=== PATIENT | female | born 1935 | race Caucasian/White ===

== ENCOUNTER 2016-08-16 21:41 | Inpatient (IN) | payer OTHER, BC ==
[~2016-08-16] VITALS: Ht 165.1 cm; Wt 63.3 kg
[~2016-08-16 21:41] MED LIST: ANTIVERT 12.512.5 MG PO; AZOR 5 MG-20 MG1 TAB PO; CALCIUM1 CAP PO; EYE OP; FISH OIL 1000MG1 CAP PO; FOLIC ACID 40400 MCG PO; FOLIC ACID0.4 MG; HCTZ 25MG TAB25 MG PO; IRON325 M1; LOTREL 5/20 CAP1 CAP PO; MACUHEALTH PO; OCUVITE1 TA1 PO; SYNTHROID0.125 MG PO; SYNTHROID0.125 MG/T; SYNTHROID0.125 MG/T PO; TEKTURNA150 MG PO; TEKTURNA300 MG PO; THERATEARS 0.60.6 ML OP; THERATEARS PO; TOPROL XL 50MG50 MG PO; TOPROL XL50 MG PO; TYLENOL 325MG325 MG PO; TYLENOL 500MG500 MG PO; VITAMIN C500 MG; VITAMIN D 400400 IU PO; VITAMIN D1000 IU PO; VITAMIN D31000 IU PO; ZOFRAN 4MG T4 MG/TAB PO
[2016-08-16 22:19] LABS: BASO # 0.1 (0.0-0.2); BASO % 0.7 % (0.0-2.0); EOS # 0.1 (0.0-0.7); GRAN # 5.5 (1.4-6.5); GRAN % 72.1 % (42.2-75.2); HEMOGLOBIN 12.6 g/dl (12.5-16.0); LYMPH # 1.1 (1.2-3.4); LYMPH % 13.9 % (20.0-51.0); MEAN CELL VOLUME 90 fl (80.0-100.0); MEAN CORPUSCULAR HEMOGLOBIN 31 pg (27.0-31.0); MEAN CORPUSCULAR HGB CONC 35 g/dl (33.0-37.0); MEAN PLATELET VOLUME 9.3 fl (7.4-10.4); MONO # 0.9 (0.1-0.6); PLATELET COUNT 232 K/mm3 (130-400); RED BLOOD COUNT 4.06 M/mm3 (4.10-5.30); REDCELL DISTRIBUTION WIDTH-CV 12.8 % (11.5-14.5); WHITE BLOOD COUNT 7.7 K/mm3 (4.8-10.8)
[2016-08-16 22:20] LABS: HEMATOCRIT 36.4 % (37.0-47.0)
[2016-08-16 22:30] LABS: ADJUSTED CALCIUM 9.7 mg/dL (8.4-10.2); ALBUMIN 4.1 gm/dL (3.5-5.0); BILIRUBIN,TOTAL 1.1 mg/dL (0.0-1.0); CALCIUM 9.8 mg/dL (8.4-10.2); CREATININE, serum 1.01 mg/dL (0.52-1.25); POTASSIUM 3.5 mmol/L (3.4-5.0); TOTAL PROTEIN 7.4 gm/dL (6.4-8.2)
[2016-08-16 22:47] LABS: PH 6 (5-8); SQUAMOUS EPITHELIAL 0-2 /hpf; URINE APPEARANCE Hazy; URINE BACTERIA Rare /hpf; URINE BILIRUBIN Negative (NEGATIVE); URINE BLOOD Negative (NEGATIVE); URINE COLOR Yellow; URINE GLUCOSE Negative (NEGATIVE); URINE KETONE Negative (NEGATIVE); URINE UROBILINOGEN Negative (NEGATIVE); URINE WBC 0-2 /hpf
[2016-08-17] VITALS (7 sets, daily range): BP systolic 134–162; BP diastolic 67–87; PULSE 72–91; TEMP 97.9–100.2
[2016-08-18 05:14] VITALS: BP 146/72; PULSE 88; TEMP 98.7
[2016-08-18 07:47] LABS: BASO % 0.4 % (0.0-2.0); EOS % 0.3 % (0-4.0); GRAN # 5.7 (1.4-6.5); GRAN % 79.7 % (42.2-75.2); LYMPH # 0.7 (1.2-3.4); LYMPH % 9.1 % (20.0-51.0); MEAN CELL VOLUME 91 fl (80.0-100.0); MEAN CORPUSCULAR HGB CONC 34 g/dl (33.0-37.0); MEAN PLATELET VOLUME 9.5 fl (7.4-10.4); MONO # 0.7 (0.1-0.6); MONO % 10.2 % (1.7-9.3); PLATELET COUNT 199 K/mm3 (130-400); RED BLOOD COUNT 3.49 M/mm3 (4.10-5.30); REDCELL DISTRIBUTION WIDTH-CV 12.8 % (11.5-14.5); WHITE BLOOD COUNT 7.2 K/mm3 (4.8-10.8)
[2016-08-18 08:04] LABS: HEMATOCRIT 31.7 % (37.0-47.0); HEMOGLOBIN 10.9 g/dl (12.5-16.0); MEAN CORPUSCULAR HEMOGLOBIN 31 pg (27.0-31.0)
[2016-08-18 08:31] LABS: CALCIUM 8.5 mg/dL (8.4-10.2); CREATININE, serum 0.97 mg/dL (0.52-1.25); POTASSIUM 3.4 mmol/L (3.4-5.0)
[2016-08-18 09:14] VITALS: BP 137/71; PULSE 79; TEMP 98.4
[2016-08-18 13:19] VITALS: BP 125/71; PULSE 88; TEMP 99.4
[2016-08-18 17:42] VITALS: BP 125/68; PULSE 90; TEMP 100.2
[2016-08-18 21:40] VITALS: BP 132/86; PULSE 98; TEMP 100.3
[2016-08-19 01:52] VITALS: BP 124/61; PULSE 76; TEMP 100.6
[2016-08-19 03:31] VITALS: TEMP 98.4
[2016-08-19 05:09] VITALS: BP 114/65; PULSE 76; TEMP 98.2
[2016-08-19 07:37] LABS: BASO % 0.5 % (0.0-2.0); EOS % 0.6 % (0-4.0); GRAN # 4.7 (1.4-6.5); GRAN % 75.8 % (42.2-75.2); LYMPH % 10.9 % (20.0-51.0); MEAN CELL VOLUME 92 fl (80.0-100.0); MEAN CORPUSCULAR HGB CONC 34 g/dl (33.0-37.0); MEAN PLATELET VOLUME 9.6 fl (7.4-10.4); MONO # 0.7 (0.1-0.6); MONO % 11.9 % (1.7-9.3); PLATELET COUNT 182 K/mm3 (130-400); RED BLOOD COUNT 2.94 M/mm3 (4.10-5.30); REDCELL DISTRIBUTION WIDTH-CV 12.8 % (11.5-14.5); WHITE BLOOD COUNT 6.2 K/mm3 (4.8-10.8)
[2016-08-19 07:59] LABS: HEMATOCRIT 27.1 % (37.0-47.0); HEMOGLOBIN 9.2 g/dl (12.5-16.0); LYMPH # 0.7 (1.2-3.4); MEAN CORPUSCULAR HEMOGLOBIN 31 pg (27.0-31.0)
[2016-08-19 09:57] VITALS: BP 104/49; PULSE 81; TEMP 99.7
== END 2016-08-19 12:31 | disposition home or self-care (01) | DRG 389 ==
LOC: COL.ER 21:41 → SURG 23:39
PROVIDERS: Emergency Medicine; Surgery
PROC: 0D9670Z Drainage of Stomach with Drainage Device, Via Natural or Artificial Opening (ICD-10-PCS; principal; 2016-08-16)
DX: K56.5 Intestinal adhesions [bands] with obstruction (postinfection) (principal); E87.1 Hypo-osmolality and hyponatremia; I10 Essential (primary) hypertension
CPT/HCPCS: J2270; J2405; J7030; J7120; Q9967

== ENCOUNTER 2018-03-28 21:44 | Observation (INO) | payer BC ==
[~2018-03-28] VITALS: Ht 165.1 cm; Wt 55.7 kg
[2018-03-28 22:27] VITALS: BP 123/78; PULSE 72; TEMP 98.7
[2018-03-29] MEDS ORDERED: SYNTHROID 0.10.15 MG PO (03:43)
[2018-03-29] MEDS ORDERED: TOPROL XL200 MG PO (03:44)
[2018-03-29] MEDS ORDERED: LOTREL 10 MG-401 CAP PO (03:45)
[2018-03-29] MEDS ORDERED: PEPCID 20MG TAB20 MG PO (03:48)
[2018-03-29] MEDS ORDERED: OCUVITE1 TA1 PO (03:49)
[2018-03-29] MEDS ORDERED: CENTRUM SILVER1 CTB PO (03:49)
[2018-03-29] MEDS ORDERED: VITAMIN D31000 I1 PO (03:51)
[2018-03-29 04:00] VITALS: BP 122/62; PULSE 64; TEMP 98.4
[2018-03-29 06:35] LABS: BASO % 0.7 % (0.0-2.0); EOS # 0.1 (0.0-0.7); EOS % 2.2 % (0-4.0); GRAN # 3.9 (1.4-6.5); GRAN % 71.5 % (42.2-75.2); HEMOGLOBIN 10.5 g/dl (12.5-16.0); LYMPH # 0.8 (1.2-3.4); LYMPH % 14.1 % (20.0-51.0); MEAN CELL VOLUME 95 fl (80.0-100.0); MEAN CORPUSCULAR HEMOGLOBIN 32 pg (27.0-31.0); MEAN CORPUSCULAR HGB CONC 33 g/dl (33.0-37.0); MEAN PLATELET VOLUME 9.9 fl (7.4-10.4); MONO # 0.6 (0.1-0.6); MONO % 11.1 % (1.7-9.3); PLATELET COUNT 171 K/mm3 (130-400); RED BLOOD COUNT 3.31 M/mm3 (4.10-5.30); REDCELL DISTRIBUTION WIDTH-CV 13.7 % (11.5-14.5)
[2018-03-29 06:42] LABS: HEMATOCRIT 31.5 % (37.0-47.0)
[2018-03-29 06:45] LABS: CALCIUM 8.5 mg/dL (8.4-10.2); CREATININE, serum 1.08 mg/dL (0.52-1.25); POTASSIUM 3.6 mmol/L (3.4-5.0)
[2018-03-29 07:15] VITALS: BP 129/68; PULSE 64; TEMP 98.3
[2018-03-29 11:28] VITALS: BP 144/79; PULSE 66; TEMP 97.7
[2018-03-29 15:13] VITALS: BP 149/75; PULSE 72; TEMP 98.1
[2018-03-29 20:07] VITALS: BP 148/81; PULSE 71; TEMP 98.2
[2018-03-30 00:08] VITALS: BP 134/68; PULSE 41; TEMP 98.9
[2018-03-30 03:30] VITALS: BP 126/65; PULSE 69; TEMP 98.3
[2018-03-30 07:17] VITALS: BP 120/74; PULSE 71; TEMP 99.2
== END 2018-03-30 10:56 | disposition home or self-care (01) ==
LOC: SURG 21:44
PROVIDERS: Surgery
DX: K56.609 Unspecified intestinal obstruction, unspecified as to partial versus complete obstruction (principal); Z90.49 Acquired absence of other specified parts of digestive tract; Z96.641 Presence of right artificial hip joint; Z90.710 Acquired absence of both cervix and uterus; Z90.6 Acquired absence of other parts of urinary tract; Z90.5 Acquired absence of kidney; Z88.5 Allergy status to narcotic agent; Z88.6 Allergy status to analgesic agent; Z88.8 Allergy status to other drugs, medicaments and biological substances
CPT/HCPCS: G0008; G0378; G0379; J7120

== ENCOUNTER → 2018-09-26 | Outpatient (REF) ==
[~2018-09-26] MED LIST changes: +CENTRUM SILVER1 CTB PO; +LOTREL 10 MG-401 CAP PO; +PEPCID 20MG TAB20 MG PO; +SYNTHROID 0.10.15 MG PO; +TOPROL XL200 MG PO; +VITAMIN D31000 I1 PO
== END ==
LOC: ZLAB.WCH 18:14
DX: Z01.89 Encounter for other specified special examinations (principal)

== ENCOUNTER 2019-01-30 13:09 | Inpatient (IN) | payer BC ==
[~2019-01-30] VITALS: Ht 165.1 cm; Wt 52.6 kg
[2019-02-12] VITALS (13 sets, daily range): BP systolic 125–138; BP diastolic 60–78; PULSE 61–73; TEMP 97–97.7
[2019-02-12 11:16] LABS: BASO # 0.1 (0.0-0.2); BASO % 0.7 % (0.0-2.0); EOS # 0.1 (0.0-0.7); EOS % 0.9 % (0-4.0); GRAN # 4.7 (1.4-6.5); GRAN % 69.5 % (42.2-75.2); HEMATOCRIT 33.5 % (37.0-47.0); HEMOGLOBIN 10.8 g/dl (12.5-16.0); LYMPH # 1.2 (1.2-3.4); LYMPH % 18.5 % (20.0-51.0); MEAN CELL VOLUME 91 fl (80.0-100.0); MEAN CORPUSCULAR HEMOGLOBIN 29 pg (27.0-31.0); MEAN CORPUSCULAR HGB CONC 32 g/dl (33.0-37.0); MEAN PLATELET VOLUME 9.3 fl (7.4-10.4); MONO # 0.7 (0.1-0.6); MONO % 10.1 % (1.7-9.3); PLATELET COUNT 213 K/mm3 (130-400); RED BLOOD COUNT 3.69 M/mm3 (4.10-5.30); REDCELL DISTRIBUTION WIDTH-CV 14.7 % (11.5-14.5)
[2019-02-12 11:29] LABS: ALBUMIN 3.9 gm/dL (3.5-5.0); BILIRUBIN,TOTAL 0.7 mg/dL (0.0-1.0); CALCIUM 8.5 mg/dL (8.4-10.2); CREATININE, serum 1.2 (0.52-1.25); POTASSIUM 3.6 mmol/L (3.4-5.0); TOTAL PROTEIN 6.9 gm/dL (6.4-8.2)
[2019-02-12] MEDS ORDERED: MASON NATURAL1000 MG PO (12:39)
[2019-02-12] MEDS ORDERED: ANTIVERT 25MG25 MG PO (12:40)
[2019-02-12] MEDS ORDERED: TYLENOL 500MG500 MG PO (12:42)
[2019-02-12] MEDS ORDERED: LASIX 40MG TABL40 MG PO (14:58)
--- NOTE | 2019-02-12 17:00 | NUR ---
returned to room per bed from PACU, awake and alert, IV infusing and placed on pump at 125ml/hr, O2 on at 2L/NC, rios cath patent draining clear yellow urine, epidural in place and infusing at 5ml/hr, rolled to side and no wrinkles in linens or wires under patient and epidural intact, SCDs on bilaterally, has approx 6cm area to distal midline incision with bloody drainage, G tube in place, instructed on use of epidural and verbalizes understanding, denies needs, family at bedside
--- NOTE | 2019-02-12 17:15 | NUR ---
appears to be dozing when entered room, G tube to dependent drainage this time with scant amount reddish brown drainage in G tube, full assessment completed, see interventions for further info, drainage to abdominal dressing remains the same
--- NOTE | 2019-02-12 17:30 | NUR ---
now has reddish brown drainage in tubing of drainage bag from G tube
--- NOTE | 2019-02-12 17:45 | NUR ---
sleeping between checks but arouses easily
--- NOTE | 2019-02-12 18:45 | NUR ---
continues to sleep, awakened and bedside shift report given to FRANCISCA Munoz
--- NOTE | 2019-02-12 20:00 | NUR ---
Report received, assumed care for third shift lieutenant. Assessment complete. VS remain stable. Denies pain-very drowsy falling asleep in between questions. IV to Left hand with [id number]-infusing without difficulty. G tube to gravity-brown fluid return. Gauze dressing to abdomen with small amount of drainage marked by day shift-has not increased. Ko cath with yellow urine. Epidural @5-denies pain stating epidural is working well. Denies questions or concerns. Call light in reach, bed in low/wheels locked. Will monitor.
--- NOTE | 2019-02-13 | NUR ---
Continues to rest this shift-denies pain, nausea or shortness of breath. Has been up off and on stating "she is so happy with her news." Call light in reach. Will monitor.
[2019-02-13 04:00] VITALS: BP 102/53; PULSE 69; TEMP 97.5
--- NOTE | 2019-02-13 04:55 | NUR ---
Rested off and on this shift-epidural in place and controlling pain. Denies nausea or shortness of breath. Has tolerated some clear liquids-remained very drowsy this shift. Denies needs at this time. Will monitor.
--- NOTE | 2019-02-13 06:53 | NUR ---
appears to be sleeping, bedside shift report received from FRANCISCA Munoz
--- NOTE | 2019-02-13 06:54 | NUR ---
Report to FRANCISCA Middleton
[2019-02-13 07:01] LABS: CREATININE, serum 1.01 (0.52-1.25)
[2019-02-13 07:08] LABS: POTASSIUM 3.9 mmol/L (3.4-5.0)
[2019-02-13 07:13] LABS: MEAN CELL VOLUME 90 fl (80.0-100.0); MEAN CORPUSCULAR HGB CONC 33 g/dl (33.0-37.0); MEAN PLATELET VOLUME 10.2 fl (7.4-10.4); PLATELET COUNT 224 K/mm3 (130-400); RED BLOOD COUNT 3.32 M/mm3 (4.10-5.30); REDCELL DISTRIBUTION WIDTH-CV 14.7 % (11.5-14.5)
--- NOTE | 2019-02-13 07:15 | NUR ---
appears to be sleeping, awakens easily, full assessment completed, see interventions for further info, denies pain or needs,
[2019-02-13 07:17] LABS: HEMOGLOBIN 9.7 g/dl (12.5-16.0); MEAN CORPUSCULAR HEMOGLOBIN 29 pg (27.0-31.0)
[2019-02-13 07:18] LABS: HEMATOCRIT 29.7 % (37.0-47.0)
--- NOTE | 2019-02-13 08:30 | NUR ---
awake and visiting with CNAs
[2019-02-13 08:38] VITALS: BP 103/59; PULSE 74; TEMP 97.8
--- NOTE | 2019-02-13 10:20 | NUR ---
Dr Jalloh in to see patient, then assisted her up and she ambulated out to [place], then back to room and sitting up in recliner, G tube with large amount brownish green liquid in drainage bag
[2019-02-13 10:37] VITALS: BP 131/56; PULSE 65; TEMP 97.9
--- NOTE | 2019-02-13 11:55 | NUR ---
c/o some nausea after having some jello and broth, will wait to take more clear liquids, is ready to go back to bed
--- NOTE | 2019-02-13 11:57 | NUR ---
First visit from the order picker/assembler. prayed with patient. No other needs right now.
--- NOTE | 2019-02-13 13:29 | NUR ---
appears to be sleeping, in bed with lights off, eyes closed, resp quiet and easy
--- NOTE | 2019-02-13 14:37 | NUR ---
awake resting in bed, encouraged to continue to use incentive spirometer and she complies,
[2019-02-13 16:27] VITALS: BP 110/59; PULSE 67; TEMP 98
--- NOTE | 2019-02-13 16:53 | NUR ---
SW met with the patient to discuss a discharge plan. The pt lives in [place] with her and reports lots of family support. The pt has a walker but does not use it. The pt's PCP is Dr. Cline and pt receives medications from [email or web address] with no difficulties. The pt has advanced directives in the EMR. The pt plans to return home with family providing transportation. SW will continue to follow to assist with any discharge recommendations.
--- NOTE | 2019-02-13 17:36 | NUR ---
ambulated in [place] with TAKE OUT WAITRESS and now sitting up in chair
--- NOTE | 2019-02-13 19:01 | NUR ---
bedside shift report given to FRANCISCA Munoz
[2019-02-13 20:00] VITALS: BP 114/64; PULSE 70; TEMP 98.2
--- NOTE | 2019-02-13 20:00 | NUR ---
Report received, assumed care for night time babysitter. Assessment complete. A&Ox3. VS stable. Denies nausea. Denies pain. Gauze dressing to abdomen-drainage marked-has not increased. G tube to dependent drainage-green/brown liquid in bag. Ko cath draining clear yellow urine. 18g IV to left hand-LR@60ml/hr. Denies questions or concerns. Family remains at bedside. Encouraged to call for needs. Verbalizes understanding. Call light in reach, bed in low position/wheels locked. Will monitor.
[2019-02-13 23:22] VITALS: BP 117/78; PULSE 79; TEMP 98.4
--- NOTE | 2019-02-14 | NUR ---
Resting in bed-eyes closed-audible snoring. No s/s of pain noted. Will monitor.
[2019-02-14 04:00] VITALS: BP 120/59; PULSE 81; TEMP 98.3
--- NOTE | 2019-02-14 05:30 | NUR ---
Has rested well this shift. G tube with a total output this shift of 550mls green fluid. Tolerated clear liquids-denied nausea this shift. Epidural controlling pain. Denies needs at this time. Will monitor.
--- NOTE | 2019-02-14 06:59 | NUR ---
Report given to Marco Antonio ESPINOSA
--- NOTE | 2019-02-14 08:00 | NUR ---
PATIENT IS SITTING UP IN THE CHAIR THIS MORNING. PATIENT IS A&O. VSS. BOWEL SOUNDS ACTIVE ALL FOUR QUADRANTS. ABDOMEN IS FLAT AND SLIGHTLY FIRM TO PALPATION. PATIENT STATES THAT SHE IS PASSING GAS. MIDLINE ABDOMINAL INCISION DRESSED WITH GAUZE & HYPAFIX WITH SCAN AMOUNT OF OLD SHADING PRESENT. BACK EPIDURAL SITE DRESSED WITH A TEGADERM AND ORANGE TAPE. SMALL AMOUNT OF BLOODY DRAINAGE PRESENT UNDERNEATH TEGADERM DRESSING. ABDOMEN LEFT-SIDED G-TUBE TO DEPENDENT DRAINAGE WITH SMALL AMOUNTS OF BILE COLORED DRAINAGE PRESENT IN BAG. INDWELLING KIMBLE CATHETER TO DEPENDENT DRAINAGE WITH SMALL AMOUNTS OF CLEAR YELLOW URINE PRESENT IN KIMBLE BAG. IV FLUIDS INFUSING TO LEFT HAND IV VIA PUMP. POSITIVE PEDAL PULSES EQUAL BILATERALLY. PITTING-EDEMA TO BLE. PATIENT TOLERATING DIET WITHOUT ANY COMPLAINTS OF N/V. CALL LIGHT WITHIN REACH. NO OTHER NEEDS AT THIS TIME.
[2019-02-14 08:21] VITALS: BP 110/81; PULSE 79; TEMP 98.7
--- NOTE | 2019-02-14 11:30 | NUR ---
First visit from the varnish dipper. No needs right now.
--- NOTE | 2019-02-14 11:53 | NUR ---
removed epidural per orders tip intact pt tolerated well. Bandaid placed over insertion site.
[2019-02-14 12:08] VITALS: BP 109/58; PULSE 75; TEMP 98.6
--- NOTE | 2019-02-14 14:05 | NUR ---
PATIENT'S KIMBLE CATHETER DISCONTINUED PER DOCTOR ORDERS. 6 MLS OF STERILE WATER ASPIRATED FROM KIMBLE BALLOON. TIP INTACT. PATIENT TOLERATED WELL. PATIENT'S G-TUBE CLAMPED PER . ORDERS. IV PLACED TO INT PER DR. ORDERS. PATIENT DENIES ANY NEEDS AT THIS TIME.
[2019-02-14 16:09] VITALS: BP 123/63; PULSE 82; TEMP 99.3
--- NOTE | 2019-02-14 16:34 | NUR ---
PATIENT GIVEN A DOSE OF PRN TYLENOL FOR A TEMPURATURE OF 99.3. WILL CONTINUE TO MONITOR.
--- NOTE | 2019-02-14 19:24 | NUR ---
REPORT GIVEN TO FRANCISCA JAIMSE.
[2019-02-14 19:55] VITALS: BP 94/52; PULSE 76; TEMP 98.4
[2019-02-14 23:58] VITALS: BP 91/58; PULSE 69; TEMP 97.8
--- NOTE | 2019-02-15 04:11 | NUR ---
Patient has slept well throughout the night. At beginning of the shift patient requested something for heartburn. Dr. Denson notified and ordered Tums. Tums given and effective for patient. G-tube in place. Dressing clean dry and intact. Patient c/o a lot of belching. Denies any further needs. Will continue to monitor patient.
[2019-02-15 04:53] VITALS: BP 120/58; PULSE 72; TEMP 98.2
--- NOTE | 2019-02-15 08:00 | NUR ---
PATIENT IS DROWSY AND RESTING IN BED THIS MORNING. PATIENT AROUSES EASILY TO TOUCH. PATIENT IS A&OX4. VSS. GENERALIZED WEAKNESS NOTED. SHALLOW BREATHING NOTED. PATIENT DENIES SOB OR A PRODUCTIVE COUGH. ABDOMEN IS DISTENDED BUT SOFT TO PALPATION. BOWEL SOUNDS ACTIVE ALL FOUR QUADRANTS. MIDLINE ABDOMINAL INCISION DRESSED WITH GAUZE AND HYPAFIX WITH SMALL AMOUNT OF OLD SHADING PRESENT ON THE DISTAL PORTION OF THE DRESSING. LEFT-SIDED ABDOMINAL G-TUBE CLAMPED AND DRESSED WITH A GAUZE AND HYPAFIX DRESSING AND IS CD&I. PATIENT TOLERATING DIET WITHOUT ANY COMPLAINTS OF N/V. BACK EPIDURAL SITE DRESSED WITH A BANDAID AND IS CD&I. LEFT HEEL REDDENED. 2+ PITTING-EDEMA TO BLE. 3+ PITTING-EDEMA TO FEET BILATERALLY. POSITIVE PEDAL PULSES EQUAL BILATERALLY. LEFT WRIST TO INT. CALL LIGHT WITHIN REACH. PATIENT DENIES ANY OTHER NEEDS AT THIS TIME.
[2019-02-15 08:36] VITALS: BP 119/64; PULSE 76; TEMP 98.3
--- NOTE | 2019-02-15 10:46 | NUR ---
PT/OT ORDERS REQUESTED BY SOCIAL WORK PRIOR TO PATIENT DISCHARGES TO HOME. PT/OT TO EVALUATE TORB FROM DR. CASILLAS TO THIS NURSE.
[2019-02-15 11:27] VITALS: BP 113/75; PULSE 78; TEMP 98.4
--- NOTE | 2019-02-15 11:35 | NUR ---
PATIENT'S LEFT WRIST INT DISCONTINUED PER PENDING DISCHARGE. TIP INTACT. PATIENT TOLERATED WELL. NO OTHER NEEDS AT THIS TIME.
--- NOTE | 2019-02-15 14:05 | NUR ---
DISCHARGE INSTRUCTIONS REVIEWED WITH PATIENT AND FAMILY. ALL QUESTIONS ANSWERED. PATIENT PERSONAL BELONGINGS GATHERED. PATIENT TAKEN TO PERSONAL VEHICLE VIA WHEELCHAIR BY SURGICAL STAFF. PATIENT DISCHARGED.
== END 2019-02-15 14:05 | disposition home or self-care (01) | DRG 336 ==
LOC: INPTSU 02-12 10:23 → JCC 02-12 10:23 → SURG 02-12 12:30 → JCC 02-12 17:00
PROVIDERS: ADMIT Surgery
PROC: 0DH63UZ Insertion of Feeding Device into Stomach, Percutaneous Approach (ICD-10-PCS; 2019-02-12)
PROC: 0DN80ZZ Release Small Intestine, Open Approach (ICD-10-PCS; principal; 2019-02-12 12:30)
PROC: 0DQV0ZZ Repair Mesentery, Open Approach (ICD-10-PCS; 2019-02-12 12:30)
DX: K56.51 Intestinal adhesions [bands], with partial obstruction (principal); E46 Unspecified protein-calorie malnutrition; Z68.1 Body mass index [BMI] 19.9 or less, adult; M19.90 Unspecified osteoarthritis, unspecified site; E03.9 Hypothyroidism, unspecified; E78.5 Hyperlipidemia, unspecified; H91.90 Unspecified hearing loss, unspecified ear; I12.9 Hypertensive chronic kidney disease with stage 1 through stage 4 chronic kidney disease, or unspecified chronic kidney disease; N18.9 Chronic kidney disease, unspecified; J44.9 Chronic obstructive pulmonary disease, unspecified; H26.9 Unspecified cataract; M81.0 Age-related osteoporosis without current pathological fracture; Z87.442 Personal history of urinary calculi; Z90.49 Acquired absence of other specified parts of digestive tract; Z96.649 Presence of unspecified artificial hip joint; Z85.54 Personal history of malignant neoplasm of ureter; Z92.3 Personal history of irradiation; Z85.79 Personal history of other malignant neoplasms of lymphoid, hematopoietic and related tissues; Z87.891 Personal history of nicotine dependence; Z85.528 Personal history of other malignant neoplasm of kidney
CPT/HCPCS: A4314; A9284; B4087; J0690; J1100; J1885; J2250; J2405; J2704; J3010; J7120